=== PATIENT | male | born 1965 | race Caucasian/White ===

== ENCOUNTER 2024-10-10 04:08 | Observation (INO) ==
[2024-10-10] MEDS ORDERED: DILAUDID INJ ONE (04:18)
[2024-10-10] MEDS ORDERED: ZOFRAN INJ 4 MG VIAL ONE (04:22)
[2024-10-10] MEDS: DILAUDID INJ IVP ONE ×2 (04:28→05:33)
[2024-10-10] MEDS: ZOFRAN INJ 4 MG VIAL IVP ONE (04:28)
--- NOTE | 2024-10-10 04:34 | DR.ABDMALE ---
HPI Time seen Time Seen by Provider: 10/10/24 04:20 HPI comment HPI Comment: Patient is a 59-year-old obese male with history of hypertension, NIDDM2 (Last A1c 6.1%), gout, and nephrolithiasis who presents to the ED with complaint of severe abdominal pain. Symptoms started 10pm on Friday. Patient states that last night he was eating a pizza and developed severe abdominal pain. He states that the pain waxes and wanes and is sharp 10/10. Radiates downwards. He is taking [place] 10 without relief. He feels hot and sweaty. Denies any fevers, chills, nausea, vomiting, diarrhea, hematuria, dysuria, hematochezia, melena, chest pain, or shortness of breath. Complaint Chief Complaint:: pt ambulatory in ed with severe epigastric pain since 10 pm last night, with n/v. pt is anxious and diaphoretic upon arrival. Self Treatment fo Chief Complaint: hydrocodone COVID-19 Coronavirus risk:travel/contact w/high risk person: No Has patient experienced Coronavirus symptoms: No Mode of arrival Mode of Arrival: Ambulatory Timing Onset of Chief Complaint: 10/09/24 PMH PMH Past Medical History: Yes Past Medical History: Diabetes, Gout and Hypertension Past Medical History Comment: Chronic Back Pain Past Surgical History: No Family History History of Family Medical Conditions: Yes Family Medical History: Diabetes Mellitus and Hypertension Travel Risk Coronavirus risk:travel/contact w/high risk person: No Has patient experienced Coronavirus symptoms: No Infectious screening Have you traveled outside the country in the last 6 months?: No Isolation: Standard ROS Review of Systems All Other Systems: Reviewed and Negative PE Vital Signs Vital Signs: Temp Pulse Resp BP Pulse Ox 10/10/24 06:15 77 95 10/10/24 06:01 73 98 10/10/24 06:01 98.3 F 121/78 10/10/24 06:00 77 94 L 10/10/24 05:45 70 93 L 10/10/24 05:39 73 94 L 10/10/24 05:39 156/85 10/10/24 05:37 79 10/10/24 05:33 20 10/10/24 04:28 20 10/10/24 04:17 81 100 10/10/24 04:09 80 26 H 176/98 100 Other Exam Other Exam: GEN: Lying in bed appears to be in severe pain Lungs: Clear to auscultation bilaterally Heart: RRR Abdomen: Tense and distended. Diffusely tender to palpation. No rebound or guarding. Skin: Moist and warm COURSE Treatment Treatment: Patient is a 59-year-old male with history of diabetes and hypertension who presents with severe abdominal pain since Friday night. Patient was seen at bedside he was writhing in pain appeared anxious and diaphoretic. Physical exam did not reveal any pinpoint tenderness. Views of the patient's pain is out of proportion to physical exam. Will obtain basic labs and CT imaging. Differential diagnosis includes aortic dissection, bowel obstruction, bowel perforation, gastroparesis, pancreatitis, cholecystitis, and nephrolithiasis. Reevaluation 1st: Improved (Patient's pain reduced in severity from 10/10 to 5/10 after 2 mg of Dilaudid. He still complaining of abdominal pain. CT imaging results revealed multiple fluid filled loops of bowel and mesenteric stranding consistent with diffuse enteritis.) 2nd: Unchanged (Patient refused NG decompression. Pain is still currently 5/10 but patient states it started in the get worse again. Decision was made for admission for bowel rest and further workup. Hospitalist was called for admission, Dr. Andrade, who agreed to admit the patient for observation.) ROR Labs Reviewed 10/10/24 04:30 10/10/24 04:30 Laboratory: WBC 10.2 X10^3/uL (3.6-10.0) H 10/10/24 04:30 RBC 6.00 X10^6/uL (4.7-6.0) 10/10/24 04:30 Hgb 17.5 g/dL (13.5-18.0) 10/10/24 04:30 Hct 51.9 % (42.0-54.0) 10/10/24 04:30 MCV 86.6 fL (80.0-100.0) 10/10/24 04:30 MCH 29.2 pg (27.0-34.0) 10/10/24 04:30 MCHC 33.7 g/dL (33.0-35.0) 10/10/24 04:30 RDW 14.7 % (11.6-16.5) 10/10/24 04:30 Plt Count 179 X10^3/uL (150.0-450.0) 10/10/24 04:30 MPV 8.7 fL (7.4-11.0) 10/10/24 04:30 Neut % (Auto) 73.0 % (42.0-75.0) 10/10/24 04:30 Lymph % (Auto) 19.2 % (21.0-51.0) L 10/10/24 04:30 [place] % (Auto) 4.7 % (0.0-13.0) 10/10/24 04:30 Eos % (Auto) 1.4 % (0.9-2.9) 10/10/24 04:30 Baso % (Auto) 1.7 % (0.2-1.0) H 10/10/24 04:30 Neut # (Auto) 7.4 x10^3/uL (2.2-4.8) H 10/10/24 04:30 Lymph # (Auto) 2.0 X10^3/uL (1.3-2.9) 10/10/24 04:30 [place] # (Auto) 0.5 x10^3/uL (0.3-0.8) 10/10/24 04:30 Eos # (Auto) 0.1 x10^3/uL (0.0-0.2) 10/10/24 04:30 Baso # (Auto) 0.2 X10^3/uL (0.0-0.1) H 10/10/24 04:30 Absolute Nucleated RBC 0.2 /100WBC 10/10/24 04:30 Sodium 143 mmol/L (136-145) 10/10/24 04:30 Corrected Sodium 145 mmol/L (136-145) 10/10/24 04:30 Potassium 4.2 mmol/L (3.5-5.1) 10/10/24 04:30 Chloride 104 mmol/L (98-107) 10/10/24 04:30 Carbon Dioxide 26.9 mmol/L (21-32) 10/10/24 04:30 BUN 26 mg/dL (7-18) H 10/10/24 04:30 Creatinine 1.02 mg/dL (0.70-1.30) 10/10/24 04:30 Est GFR (MDRD) Af Amer > 60 (>60) 10/10/24 04:30 Est GFR (MDRD) Non-Af > 60 (>60) 10/10/24 04:30 Glucose 168 mg/dL (65-99) H 10/10/24 04:30 Calcium 10.1 mg/dL (8.5-10.1) 10/10/24 04:30 Corrected Calcium TNP 10/10/24 04:30 Total Bilirubin 0.50 mg/dL (0.2-1.0) 10/10/24 04:30 AST 21 Units/L (15-37) 10/10/24 04:30 ALT 36 Units/L (12-78) 10/10/24 04:30 Alkaline Phosphatase 79 Units/L (46-116) 10/10/24 04:30 Total Protein 8.2 g/dL (6.4-8.2) 10/10/24 04:30 Albumin 4.7 g/dL (3.4-5.0) 10/10/24 04:30 Globulin 3.5 g/dL (2.5-4.5) 10/10/24 04:30 Albumin/Globulin Ratio 1.3 Ratio (1.1-2.1) 10/10/24 04:30 Amylase 63 Units/L (25-115) 10/10/24 04:30 Lipase 44 Units/L (16-77) 10/10/24 04:30 Specimen Type Clean catch urine 10/10/24 05:01 Urine Color Pale yellow (YELLOW) 10/10/24 05:01 Urine Appearance Clear (CLEAR) 10/10/24 05:01 Urine pH 8.0 (5.0 - 8.0) 10/10/24 05:01 Ur Specific [place] 1.015 (1.000-1.030) 10/10/24 05:01 Urine Protein 2+ (NEGATIVE) 10/10/24 05:01 Urine Glucose (UA) 4+ (NEGATIVE) 10/10/24 05:01 Urine Ketones 3+ (NEGATIVE) 10/10/24 05:01 Urine Blood Negative (NEGATIVE) 10/10/24 05:01 Urine Nitrite Negative (NEGATIVE) 10/10/24 05:01 Urine Bilirubin Negative (NEGATIVE) 10/10/24 05:01 Urine Urobilinogen Normal (NORMAL) 10/10/24 05:01 Ur Leukocyte Esterase Negative (NEGATIVE) 10/10/24 05:01 Urine RBC None seen /HPF (0-3) 10/10/24 05:01 Urine WBC 0-2 /HPF (0-5) 10/10/24 05:01 Ur Squamous Epith Cells Rare /HPF (NEGATIVE) 10/10/24 05:01 Urine Bacteria Negative /HPF (NEGATIVE) 10/10/24 05:01 Ur Culture Indicated? No/not indicated 10/10/24 05:01 Other Results Comments: Name: MIRIAN MARTÍNEZ JR : 1965 Sex: M Location: ER Order Number(s): [id number] Procedure(s):CT ABDOMEN/PELVIS W/O CON Ordering Physician: Yoseph Robert Primary Care: LATOYA,Дмитрий Service Date: 10/10/24 Service Time: 0413 EXAM: CT ABDOMEN AND PELVIS WITHOUT CONTRAST HISTORY: ABD PAIN; severe epigastric pain since 10 pm last night, with n/v COMPARISON: None. TECHNIQUE: Axial CT images were obtained through the abdomen and pelvis without contrast. Coronal reformatted images were included. All CT scans at this facility use dose modulation, iterative reconstruction, and/or weight based dosing when appropriate to reduce radiation dose to as low as reasonably achievable. FINDINGS: Please note that without the use of intravenous contrast, evaluation of organ parenchyma is limited. LOWER THORAX: Normal ABDOMEN: LIVER: Hepatic steatosis GALLBLADDER: Normal SPLEEN: Normal PANCREAS: Normal KIDNEYS: Normal ADRENAL GLANDS: Normal GI TRACT: Multiple mildly prominent fluid-filled loops of small bowel throughout the abdomen predominantly in the lower region and left lower quadrant with associated mesenteric edema and stranding consistent with diffuse enteritis. Extensive colonic diverticulosis. Appendix normal. LYMPH NODES: No enlarged nodes VESSELS: Normal PERITONEUM / RETROPERITONEUM: No free gas PELVIS: BLADDER: Normal GENITALS: Normal BONES: Normal Bilateral inguinal hernias containing fat. IMPRESSION: 1. Multiple mildly prominent fluid-filled loops of small bowel throughout the abdomen predominantly in the lower region and left lower quadrant with associated mesenteric edema and stranding consistent with diffuse enteritis. Extensive colonic diverticulosis. 2. Additional findings THIS IS AN ELECTRONICALLY VERIFIED FINAL REPORT 10/10/2024 6:07 AM - Electronically signed by Orly Isaac MD Report Electronically signed: 10/10/24 [id number] CC: Yoseph Robert Opioid Opioid Risk Tool Age (Ashutohs box if 16-45): No History of Preadolescent Sexual Abuse: No Total: 0 Total Score Risk Category: Low Risk Copyright: Lewis MERINO predicting aberrant behaviors Discharge Plan Diagnosis Discharge Problem: Abdominal pain Discharge Plan Patient Disposition: ADMITTED INPATIENT Condition: Stable Prescriptions: No Action lisinopril 40 mg Tablet 40 mg PO QDAY Health Concerns: Post Hospitalization: new medications and changes needed to prevent readmission or further decline. Pt educated and given instructions on all concerns. Plan of Treatment: Continue with present treatment and follow up plan. Pt is to keep follow up appointment as instructed and take medications as ordered. Orders to Discharge Patient Discharge Orders: Transfer (Routine); Ordered 10/10/24 Ordered By: Yoseph Robert Follow ups/Referrals Follow ups/Referrals: [facility],None [Primary Care Provider] - 3 days Instructions Stand Alone Forms: Find Help Web Site, Post Hospital Follow Up Care Print Language: SIER[place] LEONEAN
[2024-10-10 04:40] LABS: MEAN PLATELET VOLUME 8.7 fL (7.4-11.0); RED CELL DISTRIBUTION WIDTH 14.7 % (11.6-16.5)
[2024-10-10 04:52] LABS: COR NA(FOR HYPERGLY) 145 mmol/L (136-145); CREATININE 1.02 mg/dL (0.70-1.30); eGFR NON BLACK RACES > 60 (>60)
[2024-10-10 05:19] LABS: BLOOD/HEMOGLOBIN,URINE NEGATIVE (NEGATIVE); LEUKOCYTE ESTERASE ,URINE NEGATIVE (NEGATIVE); NITRITES,URINE NEGATIVE (NEGATIVE)
[2024-10-10 05:32] LABS: APPEARANCE,URINE CLEAR (CLEAR)
[2024-10-10 05:33] LABS: SQUAMOUS EPITHELIAL CELL,UR RARE /HPF (NEGATIVE)
--- NOTE | 2024-10-10 06:11 | CT ---
EXAM: CT ABDOMEN AND PELVIS WITHOUT CONTRAST HISTORY: ABD PAIN; severe epigastric pain since 10 pm last night, with n/v COMPARISON: None. TECHNIQUE: Axial CT images were obtained through the abdomen and pelvis without contrast. Coronal reformatted images were included. All CT scans at this facility use dose modulation, iterative reconstruction, and/or weight based dosing when appropriate to reduce radiation dose to as low as reasonably achievable. FINDINGS: Please note that without the use of intravenous contrast, evaluation of organ parenchyma is limited. LOWER THORAX: Normal ABDOMEN: LIVER: Hepatic steatosis GALLBLADDER: Normal SPLEEN: Normal PANCREAS: Normal KIDNEYS: Normal ADRENAL GLANDS: Normal GI TRACT: Multiple mildly prominent fluid-filled loops of small bowel throughout the abdomen predominantly in the lower region and left lower quadrant with associated mesenteric edema and stranding consistent with diffuse enteritis. Extensive colonic diverticulosis. Appendix normal. LYMPH NODES: No enlarged nodes VESSELS: Normal PERITONEUM / RETROPERITONEUM: No free gas PELVIS: BLADDER: Normal GENITALS: Normal BONES: Normal Bilateral inguinal hernias containing fat. IMPRESSION: 1. Multiple mildly prominent fluid-filled loops of small bowel throughout the abdomen predominantly in the lower region and left lower quadrant with associated mesenteric edema and stranding consistent with diffuse enteritis. Extensive colonic diverticulosis. 2. Additional findings THIS IS AN ELECTRONICALLY VERIFIED FINAL REPORT 10/10/2024 6:07 AM - Electronically signed by Orly Isaac MD
[2024-10-10] MEDS ORDERED: TYLENOL 325 MG TAB PO PRN (09:36)
[2024-10-10 10:01] VITALS: BMI 42.7
[2024-10-10] MEDS ORDERED: BENTYL I.M. INJ 10 MG IM PRN (10:12)
[2024-10-10] MEDS: PROTONIX INJ 40 MG VIAL IVP SCH (10:58)
[2024-10-10] MEDS: NS 1,000 ML IV 1,000 ML IV SCH (10:58)
--- NOTE | 2024-10-10 11:45 | DR.H&P ---
H&P History & Physical for Day of: H&P Date: 10/10/24 Chief Complaint Chief Complaint: SEVERE ABDOMINAL PAIN History of Present Illness History of Present Illness: PT IS 59 WM, ER AMISSION AFTER PRESENTING WITH CO SUDDEN ONSET OF MID, UPPER ABDOMINAL PAIN THAT CONTINUED FOR HOURS PRIOR TO ARRIVAL. 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 PT HAS PMH OF DM AND HTN. PT CO HX OF RENAL STONES BUT "THIS FEELS DIFFERENT". PT DENIES ANY VOMITING OR DIARRHEA PRIOR TO ARRIVAL. Past Medical History Past Medical History: Diabetes, Gout and Hypertension Past Surgical History Surgical History: Ortho Surgery Family History Family Medical History: Diabetes Mellitus and Hypertension Social History Does any household member use tobacco: No Alcohol Use: None Drug Use: None Medications Home Medications: Home Medications Medication Instructions Recorded Confirmed Type lisinopril 40 mg tablet 40 mg PO QDAY 10/10/2410/10 History Allergies Allergies Allergy/AdvReac Type Severity Reaction Status Date / Time No Known Allergies Allergy Verified 10/10/24 04:17 Labs 10/10/24 04:30 10/10/24 04:30 Labs: Laboratory WBC 10.2 X10^3/uL (3.6-10.0) H 10/10/24 04:30 RBC 6.00 X10^6/uL (4.7-6.0) 10/10/24 04:30 Hgb 17.5 g/dL (13.5-18.0) 10/10/24 04:30 Hct 51.9 % (42.0-54.0) 10/10/24 04:30 MCV 86.6 fL (80.0-100.0) 10/10/24 04:30 MCH 29.2 pg (27.0-34.0) 10/10/24 04:30 MCHC 33.7 g/dL (33.0-35.0) 10/10/24 04:30 RDW 14.7 % (11.6-16.5) 10/10/24 04:30 Plt Count 179 X10^3/uL (150.0-450.0) 10/10/24 04:30 MPV 8.7 fL (7.4-11.0) 10/10/24 04:30 Neut % (Auto) 73.0 % (42.0-75.0) 10/10/24 04:30 Lymph % (Auto) 19.2 % (21.0-51.0) L 10/10/24 04:30 Gem % (Auto) 4.7 % (0.0-13.0) 10/10/24 04:30 Eos % (Auto) 1.4 % (0.9-2.9) 10/10/24 04:30 Baso % (Auto) 1.7 % (0.2-1.0) H 10/10/24 04:30 Neut # (Auto) 7.4 x10^3/uL (2.2-4.8) H 10/10/24 04:30 Lymph # (Auto) 2.0 X10^3/uL (1.3-2.9) 10/10/24 04:30 Gem # (Auto) 0.5 x10^3/uL (0.3-0.8) 10/10/24 04:30 Eos # (Auto) 0.1 x10^3/uL (0.0-0.2) 10/10/24 04:30 Baso # (Auto) 0.2 X10^3/uL (0.0-0.1) H 10/10/24 04:30 Absolute Nucleated RBC 0.2 /100WBC 10/10/24 04:30 Sodium 143 mmol/L (136-145) 10/10/24 04:30 Corrected Sodium 145 mmol/L (136-145) 10/10/24 04:30 Potassium 4.2 mmol/L (3.5-5.1) 10/10/24 04:30 Chloride 104 mmol/L (98-107) 10/10/24 04:30 Carbon Dioxide 26.9 mmol/L (21-32) 10/10/24 04:30 BUN 26 mg/dL (7-18) H 10/10/24 04:30 Creatinine 1.02 mg/dL (0.70-1.30) 10/10/24 04:30 Est GFR (MDRD) Af Amer > 60 (>60) 10/10/24 04:30 Est GFR (MDRD) Non-Af > 60 (>60) 10/10/24 04:30 Glucose 168 mg/dL (65-99) H 10/10/24 04:30 Calcium 10.1 mg/dL (8.5-10.1) 10/10/24 04:30 Corrected Calcium TNP 10/10/24 04:30 Total Bilirubin 0.50 mg/dL (0.2-1.0) 10/10/24 04:30 AST 21 Units/L (15-37) 10/10/24 04:30 ALT 36 Units/L (12-78) 10/10/24 04:30 Alkaline Phosphatase 79 Units/L (46-116) 10/10/24 04:30 Total Protein 8.2 g/dL (6.4-8.2) 10/10/24 04:30 Albumin 4.7 g/dL (3.4-5.0) 10/10/24 04:30 Globulin 3.5 g/dL (2.5-4.5) 10/10/24 04:30 Albumin/Globulin Ratio 1.3 Ratio (1.1-2.1) 10/10/24 04:30 Amylase 63 Units/L (25-115) 10/10/24 04:30 Lipase 44 Units/L (16-77) 10/10/24 04:30 Specimen Type Clean catch urine 10/10/24 05:01 Urine Color Pale yellow (YELLOW) 10/10/24 05:01 Urine Appearance Clear (CLEAR) 10/10/24 05:01 Urine pH 8.0 (5.0 - 8.0) 10/10/24 05:01 Ur Specific [place] 1.015 (1.000-1.030) 10/10/24 05:01 Urine Protein 2+ (NEGATIVE) 10/10/24 05:01 Urine Glucose (UA) 4+ (NEGATIVE) 10/10/24 05:01 Urine Ketones 3+ (NEGATIVE) 10/10/24 05:01 Urine Blood Negative (NEGATIVE) 10/10/24 05:01 Urine Nitrite Negative (NEGATIVE) 10/10/24 05:01 Urine Bilirubin Negative (NEGATIVE) 10/10/24 05:01 Urine Urobilinogen Normal (NORMAL) 10/10/24 05:01 Ur Leukocyte Esterase Negative (NEGATIVE) 10/10/24 05:01 Urine RBC None seen /HPF (0-3) 10/10/24 05:01 Urine WBC 0-2 /HPF (0-5) 10/10/24 05:01 Ur Squamous Epith Cells Rare /HPF (NEGATIVE) 10/10/24 05:01 Urine Bacteria Negative /HPF (NEGATIVE) 10/10/24 05:01 Ur Culture Indicated? No/not indicated 10/10/24 05:01 Review of Systems Constitutional: Weakness Eyes: No Symptoms Reported ENT: No Symptoms Reported Respiratory: No Symptoms Reported Cardiovascular: No Symptoms Reported Gastrointestinal: Nausea and Abdominal Pain Genitourinary: No Symptoms Reported Musculoskeletal: Back Pain Skin: No Symptoms Reported Neurological: No Symptoms Reported Physical Exam Vital Signs: Vital Signs Temperature 98.3 F Pulse Rate 73 Pulse Rate 77 Pulse Rate 75 Pulse Rate 77 Pulse Rate 76 Pulse Rate 75 Pulse Rate 73 Pulse Rate 77 Pulse Rate 77 Pulse Rate 73 Pulse Rate 77 Pulse Rate 70 Pulse Rate 73 Pulse Rate 79 Pulse Rate 81 Pulse Rate 80 Respiratory Rate 20 Respiratory Rate 15 Respiratory Rate 18 Respiratory Rate 18 Respiratory Rate 25 Respiratory Rate 14 Respiratory Rate 12 Respiratory Rate 35 Respiratory Rate 20 Respiratory Rate 20 Respiratory Rate 26 Blood Pressure 144/83 Blood Pressure 133/82 Blood Pressure 125/80 Blood Pressure 116/76 Blood Pressure 121/78 Blood Pressure 156/85 Blood Pressure 176/98 O2 Sat by Pulse Oximetry 96 O2 Sat by Pulse Oximetry 95 O2 Sat by Pulse Oximetry 94 O2 Sat by Pulse Oximetry 99 O2 Sat by Pulse Oximetry 95 O2 Sat by Pulse Oximetry 98 O2 Sat by Pulse Oximetry 94 O2 Sat by Pulse Oximetry 93 O2 Sat by Pulse Oximetry 94 O2 Sat by Pulse Oximetry 100 O2 Sat by Pulse Oximetry 100 Oriented: Normal Eyes: Normal Nose: Normal Throat: Normal Respiratory: Clear Throughout Cardiovascular: Normal Auscultation: Bowel Sounds: Increased Palpation: Normal Tenderness: Epigastric and Periumbilical Skin: Normal Musculoskeletal: Back:Lumbar and Tender Psychiatric: Normal Speech Pattern: Clear and Appropriate Assessment/Plan (1) Gastroenteritis: Status: Acute Plan: ADMIT, IV HYDRATION PAIN CONTROL, BP CONTROL BS CONTROL, CT ABD/PELVIS IN ER PPI THERAPY, STOOL STUDIES (2) Diabetes: Status: Acute (3) Hypertension: Status: Acute
[2024-10-10] MEDS ORDERED: NovoLIN R (or HumuLIN R) SUBCUT PRN (11:49)
[2024-10-10] MEDS: MORPHINE SULFATE INJ 2 MG INJ IVP PRN (14:17)
[2024-10-10] MEDS: SNACK - Diabetic Appropriate PO SCH (20:29)
[2024-10-11] MEDS: NORCO 5/325 MG TAB PO PRN (02:04)
[2024-10-11 06:09] LABS: MEAN PLATELET VOLUME 8.7 fL (7.4-11.0); RED CELL DISTRIBUTION WIDTH 14.9 % (11.6-16.5)
[2024-10-11 06:26] LABS: COR NA(FOR HYPERGLY) 140 mmol/L (136-145); CREATININE 0.80 mg/dL (0.70-1.30); eGFR NON BLACK RACES > 60 (>60)
[2024-10-11] MEDS: ULTRAM PO PRN (06:51)
[2024-10-11] MEDS ORDERED: PHARMACY CONSULT XX SCH (09:00)
--- NOTE | 2024-10-11 18:22 | RAD ---
EXAMINATION: ACUTE ABDOMEN SERI ES HISTORY: abdominal pain; . COMPARISON STUDY: None. TECHNIQUE: Single frontal view of the chest and three views of the abdomen FINDINGS: The lungs are expanded. Mild cardiac silhouette enlargement. Normal pulmonary vascular pattern. Mild gaseous distention of proximal and distal small bowel. No evidence of intraperitoneal free air. Visualized soft tissue outlines and osseous structures appear intact. IMPRESSION: Nonspecific mild gaseous distention of proximal and distal small bowel. Consider small bowel ileus, possible mechanical obstruction. Mild cardiac silhouette enlargement. THIS IS AN ELECTRONICALLY VERIFIED FINAL REPORT 10/11/2024 6:19 PM - Electronically signed by Geeta Marin MD
[2024-10-11] MEDS: DILAUDID INJ IVP PRN (19:05)
[2024-10-12 06:07] LABS: MEAN PLATELET VOLUME 8.2 fL (7.4-11.0); RED CELL DISTRIBUTION WIDTH 14.7 % (11.6-16.5)
[2024-10-12 06:30] LABS: CREATININE 0.84 mg/dL (0.70-1.30); eGFR NON BLACK RACES > 60 (>60)
[2024-10-12 08:31] VITALS: RESP 18
--- NOTE | 2024-10-12 10:08 | US ---
EXAM: GALL BLADDER HISTORY: ABD PAIN; COMPARISON: CT abdomen and pelvis 10/10/2024 TECHNIQUE: 62 images made by the field care manager. Hendricks scale and color-flow images of the right upper quadrant were obtained. FINDINGS: The liver has diffuse increased echogenicity suggesting medical liver disease. The most common etiology for this finding is steatosis; but cirrhosis, chronic hepatitis, and deposition disorders can have a similar appearance. The liver has a normal size. No mass or intrahepatic biliary duct dilatation is present. The intrahepatic inferior vena cava was imaged. The portal vein is patent with blood flow toward the liver. The visualized hepatic veins are patent with blood flow toward the right atrium. The hepatic artery was patent. Limited visualization of the pancreas shows no significant abnormality. The gallbladder wall is thickened measuring 3-4 mm. Gallbladder wall thickening is a nonspecific finding. It can be seen with many acute or chronic processes. The most common acute etiology is acute cholecystitis. The most common chronic etiology is chronic cholecystitis. A nuclear medicine hepatobiliary scan can help differentiate between these. No echogenic stones or pericholecystic fluid was present. No extrahepatic biliary duct dilatation; common duct is normal. The right kidney is normal in size and echogenicity. No hydronephrosis. Resistive index measures 0.73. IMPRESSION: 1. Nonspecific gallbladder wall thickening 2. Medical liver disease THIS IS AN ELECTRONICALLY VERIFIED FINAL REPORT 10/12/2024 10:01 AM - Electronically signed by Nixon Gardner MD
[2024-10-12 10:53] LABS: CRYPTOSPORIDIUM PARVUM ANTIGEN NEGATIVE (NEGATIVE); GIARDIA LAMBLIA ANTIGEN NEGATIVE (NEGATIVE)
[2024-10-12 12:13] VITALS: BP 130/66; PULSE 70; TEMP 97.8; O2SAT 96
--- NOTE | 2024-10-12 12:15 | RAD ---
EXAM: KUB HISTORY: Pain ileus COMPARISON: 10/11/2024 FINDINGS: There is mild gaseous distention of scattered segments of small bowel and colon although this pattern has improved since 1 day prior. There is no evidence for developing mass, ascites or other abnormality. IMPRESSION: Slight interval improvement in intestinal distention. The current intestinal pattern is likely related to ileus or resolving partial SBO. THIS IS AN ELECTRONICALLY VERIFIED FINAL REPORT 10/12/2024 12:11 PM - Electronically signed by Nick Nelson MD
== END 2024-10-12 13:50 | disposition home or self-care (01) ==
LOC: ER 04:08 → MED/SURG 04:08
PROVIDERS: ADMIT Internal Medicine; ATTEND Internal Medicine
DX: Z87.442 Personal history of urinary calculi; R10.13 Epigastric pain; K90.49 Malabsorption due to intolerance, not elsewhere classified; K21.9 Gastro-esophageal reflux disease without esophagitis; K52.89 Other specified noninfective gastroenteritis and colitis; E11.65 Type 2 diabetes mellitus with hyperglycemia; N20.0 Calculus of kidney; K56.7 Ileus, unspecified; K82.8 Other specified diseases of gallbladder; I10 Essential (primary) hypertension; R10.84 Generalized abdominal pain